=== PATIENT | female | born 1950 | race Caucasian/White ===

== ENCOUNTER → 2017-02-09 | Outpatient (CLI) | payer OTHER, MEDICARE | LOC: FIMAGING 15:30 | PROVIDERS: ATTEND Family Medicine | DX: Z12.31 Encounter for screening mammogram for malignant neoplasm of breast (principal) | CPT/HCPCS: G0202 ==

== ENCOUNTER → 2018-02-11 | Outpatient (CLI) | payer OTHER, MEDICARE | LOC: FIMAGING 09:53 | PROVIDERS: ATTEND Family Medicine | DX: Z12.31 Encounter for screening mammogram for malignant neoplasm of breast (principal) ==

== ENCOUNTER → 2018-03-05 | Outpatient (CLI) | payer OTHER, MEDICARE | LOC: FIMAGING 10:06 | PROVIDERS: ATTEND Family Medicine | DX: Z03.89 Encounter for observation for other suspected diseases and conditions ruled out (principal) ==

== ENCOUNTER 2018-07-26 10:17 | Emergency (ER) | payer OTHER, MEDICARE | END 2018-07-26 11:24 | disposition home or self-care (01) ==

== ENCOUNTER 2018-07-30 09:21 | Emergency (ER) | payer OTHER, MEDICARE | END 2018-07-30 10:15 | disposition home or self-care (01) ==